=== PATIENT | female | born 1985 | race Caucasian/White ===

== ENCOUNTER → 2021-11-12 | Outpatient (CLI) | payer OTHER | LOC: HEART 5 07:57 | DX: R01.1 Cardiac murmur, unspecified (principal); I07.1 Rheumatic tricuspid insufficiency | CPT/HCPCS: 93306 ==

== ENCOUNTER 2021-12-30 08:34 | Emergency (ER) | payer OTHER ==
[2021-12-30] MEDS ORDERED: NAPROSYN500 MG PO (10:47)
== END 2021-12-30 11:02 | disposition home or self-care (01) ==
LOC: ER1 08:34
DX: S92.351A Displaced fracture of fifth metatarsal bone, right foot, initial encounter for closed fracture (principal); X58.XXXA Exposure to other specified factors, initial encounter; Y93.9 Activity, unspecified; Y92.009 Unspecified place in unspecified non-institutional (private) residence as the place of occurrence of the external cause; Y99.0 Civilian activity done for income or pay
CPT/HCPCS: 29515; 73630; 99283

== ENCOUNTER → 2022-01-05 | Outpatient (CLI) | payer OTHER ==
[~2022-01-05] MED LIST: NAPROSYN500 MG PO
== END ==
LOC: KOH-I 15:02
DX: S92.351A Displaced fracture of fifth metatarsal bone, right foot, initial encounter for closed fracture (principal)
CPT/HCPCS: 73630

== ENCOUNTER 2022-06-02 16:19 | Emergency (ER) | payer OTHER ==
[2022-06-02 17:52] LABS: HEMOGLOBIN 11.5 gm/dl (12.3-15.3); RED BLOOD COUNT 4.16 M/UL (4.00-5.10); WHITE BLOOD COUNT 14.7 K/UL (4.5-11.0)
[2022-06-02 19:21] LABS: BUN/CREATININE RATIO 21 (0-10)
[2022-06-02] MEDS ORDERED: GLUCOPHAGE 500500 MG PO (19:36)
== END 2022-06-02 21:25 | disposition home or self-care (01) ==
LOC: ER1 16:19
PROVIDERS: Emergency Medicine
DX: U07.1 COVID-19 (principal); Z23 Encounter for immunization; D64.9 Anemia, unspecified; R73.9 Hyperglycemia, unspecified; D72.829 Elevated white blood cell count, unspecified
CPT/HCPCS: 0240U; 71045; 80053; 82550; 82553; 82962; 83036; 83605; 84484; 84703; 85025; 87040; 87081; 87880; 93005; 96361; 96374; 99284; M0222

== ENCOUNTER 2022-06-22 13:35 | Inpatient (IN) | payer OTHER ==
[~2022-06-22] VITALS: Ht 177.8 cm; Wt 129.3 kg
[~2022-06-22 13:35] MED LIST changes: +GLUCOPHAGE 500500 MG PO
[2022-06-22 14:45] LABS: HEMOGLOBIN 9.7 gm/dl (12.3-15.3); RED BLOOD COUNT 3.64 M/UL (4.00-5.10); WHITE BLOOD COUNT 15.9 K/UL (4.5-11.0)
--- NOTE | 2022-06-23 00:29 | NUR ---
PATIENT BGLWAS [address] DIAL NEW ORDERS WERE OBTAINED FOR 1000ML BOLUS AND 14 UNITS OF HUMALOG. RECHECK IN 2 HOURS.
--- NOTE | 2022-06-23 03:23 | NUR ---
AFTER 2 HR RECHECK OG BGL THE PATIENT WAS STILL AT [address] DIAL AND HER ORSERED ANOTHER 14 UNITS OF HUMALOG AND RECHECK IN 2 HOURS
[2022-06-23 04:07] LABS: WHITE BLOOD COUNT 15.2 K/UL (4.5-11.0)
[2022-06-23 04:35] LABS: BUN/CREATININE RATIO 22 (0-10)
[2022-06-23] MEDS ORDERED: METFORMIN HCL500 MG PO (11:03)
[2022-06-24 06:38] LABS: HEMOGLOBIN 7.9 gm/dl (12.3-15.3); RED BLOOD COUNT 3.02 M/UL (4.00-5.10)
[2022-06-24 06:41] LABS: WHITE BLOOD COUNT 11.3 K/UL (4.5-11.0)
[2022-06-25 02:52] LABS: HEMOGLOBIN 7.9 gm/dl (12.3-15.3); RED BLOOD COUNT 3.02 M/UL (4.00-5.10); WHITE BLOOD COUNT 11.7 K/UL (4.5-11.0)
[2022-06-26 08:02] LABS: HEMOGLOBIN 8.2 gm/dl (12.3-15.3); RED BLOOD COUNT 3.15 M/UL (4.00-5.10); WHITE BLOOD COUNT 10.5 K/UL (4.5-11.0)
[2022-06-27 08:13] LABS: CREATININE, URINE 104.4 mg/dL (Not Estab.)
[2022-06-27 09:13] LABS: COMPLEMENT C3, SERUM 150 mg/dL (82-167); COMPLEMENT C4, SERUM 25 mg/dL (12-38)
[2022-06-27 15:38] LABS: HEMOGLOBIN 9.2 gm/dl (12.3-15.3)
[2022-06-27 15:39] LABS: RED BLOOD COUNT 3.52 M/UL (4.00-5.10); WHITE BLOOD COUNT 13.5 K/UL (4.5-11.0)
[2022-06-28 07:42] LABS: RED BLOOD COUNT 2.78 M/UL (4.00-5.10); WHITE BLOOD COUNT 11.5 K/UL (4.5-11.0)
[2022-06-28 07:43] LABS: HEMOGLOBIN 7.2 gm/dl (12.3-15.3)
--- NOTE | 2022-06-29 02:59 | NUR ---
CRITICAL LAB CALL RECIEVED TODAY, POTASSIUM OF 5.6 REPORTED, CONTACTED DR. GAVIRIA WHO INSTRUCTED ME TO CALL DR. CUNNINGHAM. CONTACTED DR. CUNNINGHAM VIA PHONE AND HE INSTRUCTED TO ORDER 15g OF KAYEXALATE AND THEN 30g OF LACTULOSE AND ADMINISTER 30 MINS POST THE ADMINISTRATION OF THE KAYEXALATE. HE ALSO INSTRUCTED FOR A VENOUS BLOOD GAS TO BE ORDERED FOR THE MORNING LABS. INFORMED PATIENT, WHO VERBALIZED UNDERSTANDING.
[2022-06-29 06:23] LABS: HEMOGLOBIN 7.2 gm/dl (12.3-15.3); RED BLOOD COUNT 2.76 M/UL (4.00-5.10); WHITE BLOOD COUNT 9.6 K/UL (4.5-11.0)
[2022-06-29 14:11] LABS: ANTISTREPTOLYSIN O AB >3660.0 IU/mL (0.0-200.0)
[2022-06-29 15:11] LABS: ANTI-DSDNA ANTIBODIES <1 IU/mL (0-9)
--- NOTE | 2022-06-29 18:00 | NUR ---
BLOOD TRANSFUSION STARTED AT 1800. PT TOLERATING WELL. VS WNL. WILL CONTINUE TO MONITOR PATIENT
[2022-06-30 06:19] LABS: HEMOGLOBIN 7.4 gm/dl (12.3-15.3); RED BLOOD COUNT 2.82 M/UL (4.00-5.10)
[2022-06-30 06:20] LABS: WHITE BLOOD COUNT 6.9 K/UL (4.5-11.0)
[2022-06-30 15:10] LABS: ANTIMYELOPEROXIDASE (MPO) ABS <0.2 units (0.0-0.9); ANTIPROTEINASE 3 (PR-3) ABS <0.2 units (0.0-0.9); ATYPICAL PANCA <1:20 titer (Neg:<1:20); CYTOPLASMIC (C-ANCA) 1:20 titer (Neg:<1:20); PERINUCLEAR (P-ANCA) <1:20 titer (Neg:<1:20)
[2022-07-01 06:26] LABS: HEMOGLOBIN 7.8 gm/dl (12.3-15.3); RED BLOOD COUNT 2.95 M/UL (4.00-5.10); WHITE BLOOD COUNT 6.6 K/UL (4.5-11.0)
[2022-07-02 06:15] LABS: HEMOGLOBIN 7.7 gm/dl (12.3-15.3); RED BLOOD COUNT 3.03 M/UL (4.00-5.10)
[2022-07-03 06:40] LABS: HEMOGLOBIN 8.3 gm/dl (12.3-15.3); RED BLOOD COUNT 3.12 M/UL (4.00-5.10); WHITE BLOOD COUNT 6.5 K/UL (4.5-11.0)
[2022-07-03 08:14] LABS: COMPLEMENT C3, SERUM 117 mg/dL (82-167); COMPLEMENT C4, SERUM 27 mg/dL (12-38)
[2022-07-03] MEDS ORDERED: PERCOCET 7.5-31 EACH PO (12:53)
[2022-07-03] MEDS ORDERED: FERROUS GLUCON324 M1 PO (15:57)
[2022-07-03] MEDS ORDERED: MAG-OX 400 TAB400 MG PO (16:15)
[2022-07-03] MEDS ORDERED: LANTUS SOL100 UNIT/1 SQ (16:15)
[2022-07-03] MEDS ORDERED: METFORMIN HCL500 MG PO (16:15)
[2022-07-03] MEDS ORDERED: NOVOLOG FL100 UNIT/1 INJ (16:15)
[2022-07-04 10:13] LABS: CREATININE, URINE 61.9 mg/dL (Not Estab.)
== END 2022-07-03 17:15 | disposition home health service (06) | DRG 871 ==
LOC: ER1 13:35 → CDU 19:01 → MED SURG 4 19:01
PROVIDERS: Internal Medicine; Internal Medicine Infectious Disease; Internal Medicine Nephrology; Physician Assistant; ADMIT Internal Medicine
PROC: 3E03329 Introduction of Other Anti-infective into Peripheral Vein, Percutaneous Approach (ICD-10-PCS; principal; 2022-06-24)
PROC: 0J9M0ZZ Drainage of Left Upper Leg Subcutaneous Tissue and Fascia, Open Approach (ICD-10-PCS; 2022-06-28)
PROC: 30233N1 Transfusion of Nonautologous Red Blood Cells into Peripheral Vein, Percutaneous Approach (ICD-10-PCS; 2022-06-29)
DX: A41.9 Sepsis, unspecified organism (principal); N17.0 Acute kidney failure with tubular necrosis; Z20.822 Contact with and (suspected) exposure to COVID-19; E11.52 Type 2 diabetes mellitus with diabetic peripheral angiopathy with gangrene; L03.116 Cellulitis of left lower limb; L02.416 Cutaneous abscess of left lower limb; D62 Acute posthemorrhagic anemia; E87.1 Hypo-osmolality and hyponatremia; Z68.41 Body mass index [BMI] 40.0-44.9, adult; E66.01 Morbid (severe) obesity due to excess calories; R65.20 Severe sepsis without septic shock; K21.9 Gastro-esophageal reflux disease without esophagitis; K80.20 Calculus of gallbladder without cholecystitis without obstruction; E87.5 Hyperkalemia; L73.8 Other specified follicular disorders; I10 Essential (primary) hypertension; R79.89 Other specified abnormal findings of blood chemistry; E83.42 Hypomagnesemia; Z79.4 Long term (current) use of insulin; Z83.3 Family history of diabetes mellitus; Z90.710 Acquired absence of both cervix and uterus
CPT/HCPCS: 36415; 36430; 73700; 80048; 80053; 80202; 81001; 82043; 82550; 82570; 82728; 82803; 82962; 83520; 83540; 83550; 83605; 83735; 84156; 84439; 84443; 85014; 85018; 85025; 85027; 85610; 85730; 86038; 86060; 86160; 86225; 86256; 86850; 86900; 86901; 86920; 87040; 87070; 87077; 87186; 87205; 89050; 96365; 96366; 96375; 96376; 99284; G0378; J0692; J1100; J1170; J1335; J2001; J2020; J2250; J2405; J2543; J2704; J3010; J3370; J7070; P9016; P9047; Q9967

== ENCOUNTER → 2022-08-14 | Outpatient (CLI) | payer OTHER ==
[~2022-08-14] MED LIST changes: +FERROUS GLUCON324 M1 PO; +HYDROCODON-ACE1 EAC4 PO; +KEFLEX CAP 250250 MG PO; +LANTUS SOL100 UNIT/1 SC; +LANTUS SOL100 UNIT/1 SQ; +MAG-OX 400 TAB400 MG PO; +METFORMIN HCL500 MG PO; +NOVOLOG FL100 UNIT/1 INJ; +PERCOCET 7.5-31 EACH PO; +SOLIQUA 100 UNIT3 ML SC
[2022-08-14 10:23] LABS: HEMOGLOBIN 10.7 gm/dl (12.3-15.3); RED BLOOD COUNT 3.95 M/UL (4.00-5.10); WHITE BLOOD COUNT 7.4 K/UL (4.5-11.0)
[2022-08-14 10:40] LABS: BUN/CREATININE RATIO 29 (0-10)
== END ==
LOC: OPSV2 08:00
PROVIDERS: Surgery
DX: Z01.812 Encounter for preprocedural laboratory examination (principal)
CPT/HCPCS: 36415; 80048; 85025

== ENCOUNTER 2022-08-18 08:59 | Observation (INO) | payer OTHER ==
[~2022-08-18] VITALS: Ht 177.8 cm; Wt 118.4 kg
[~2022-08-18 08:59] MED LIST changes: -HYDROCODON-ACE1 EAC4 PO; -KEFLEX CAP 250250 MG PO
[2022-08-18 11:18] LABS: HEMOGLOBIN 9.3 gm/dl (12.3-15.3); RED BLOOD COUNT 3.37 M/UL (4.00-5.10); WHITE BLOOD COUNT 7.7 K/UL (4.5-11.0)
[2022-08-20] MEDS ORDERED: KEFLEX CAP 250250 MG PO (07:32)
--- NOTE | 2022-08-20 09:35 | NUR ---
CALLED DR AUGUSTINE IN REGARDS TO PATIENT REQUESTING PAIN MEDICATION. DR AUGUSTINE WILL CALL IN PAIN MEDICATION FOR PATIENT. PATIENT INFORMED.
[2022-08-20] MEDS ORDERED: HYDROCODON-ACE1 EAC4 PO (09:53)
== END 2022-08-20 09:50 | disposition home or self-care (01) ==
LOC: OR 08:59 → MED SURG 4 09:00 → OR 11:15 → MED SURG 4 13:55 → OR 13:55 → MED SURG 4 08-19 12:40 → OR 08-19 12:40 → MED SURG 4 08-20 09:50
PROVIDERS: ADMIT Surgery
DX: L03.116 Cellulitis of left lower limb (principal); K80.50 Calculus of bile duct without cholangitis or cholecystitis without obstruction; I10 Essential (primary) hypertension; Z53.8 Procedure and treatment not carried out for other reasons
CPT/HCPCS: 82962; 84703; 85025; G0378; J0690; J2405